=== PATIENT | male | born 1970 | race Caucasian/White ===

== ENCOUNTER 2023-12-27 22:24 | Emergency (ER) | payer OTHER ==
[~2023-12-27] VITALS: Ht 167.6 cm; Wt 57.5 kg
[~2023-12-27 22:24] MED LIST: CLIN300C17 PO; PRED5TAB PO
[2023-12-27 22:55] VITALS: BP 116/79; PULSE 96; RESP 16; TEMP 98.2; O2SAT 99
== END 2023-12-28 01:19 | disposition left against medical advice (07) ==
LOC: ER 22:24
DX: M79.604 Pain in right leg (principal); R20.0 Anesthesia of skin; Z53.21 Procedure and treatment not carried out due to patient leaving prior to being seen by health care provider

== ENCOUNTER 2024-01-18 14:19 | Emergency (ER) | payer BC, OTHER ==
[~2024-01-18] VITALS: Ht 167.6 cm; Wt 68.0 kg
[2024-01-18 15:12] LABS: BASOPHILS # (AUTO) 0.1 X10'3 (0-0.2); EOSINOPHILS # (AUTO) 0.1 X10'3 (0-0.9); EOSINOPHILS % (AUTO) 0.9 % (0-6); HEMATOCRIT 41.8 % (42.0-52.0); HEMOGLOBIN 14.5 g/dl (14.0-17.9); LYMPHOCYTES # (AUTO) 2.2 X10'3 (1.1-4.8); LYMPHOCYTES % (AUTO) 25.4 % (21-51); MEAN CORPUSCULAR HEMOGLOBIN 34.7 PG (27.0-31.0); MEAN CORPUSCULAR HGB CONC 34.7 g/dL (33.0-36.5); MEAN PLATELET VOLUME 6.2 FL (7.4-10.4); MONOCYTES # (AUTO) 0.8 X10'3 (0-0.9); MONOCYTES % (AUTO) 9.3 % (2-12); NEUTROPHILS # (AUTO) 5.6 X10'3 (1.8-7.7); NEUTROPHILS % (AUTO) 63.4 % (42-75); PLATELET COUNT 379 X10'3 (140-440); RED BLOOD COUNT 4.18 X10'6 (4.70-6.10); RED CELL DISTRIBUTION WIDTH 14.2 % (11.5-14.5); WHITE BLOOD COUNT 8.8 X10'3 (4.5-11.0)
[2024-01-18 15:23] LABS: ALANINE AMINOTRANSFERASE 49 U/L (12-78); ALBUMIN 4.6 G/DL (3.4-5.0); ALBUMIN/GLOBULIN RATIO 1.2 (1.1-1.5); ALKALINE PHOSPHATASE 64 IU/L (46-116); ANION GAP 11 (8-16); ASPARTATE AMINO TRANSFERASE 37 U/L (10-37); BILIRUBIN,TOTAL 1.5 MG/DL (0.1-1.0); BLOOD UREA NITROGEN 6 MG/DL (7-18); BUN/CREATININE RATIO 9.4 (10.0-20.0); CALCIUM 9.1 MG/DL (8.5-10.1); CHLORIDE 93 MMOL/L (99-107); CREATININE 0.64 MG/DL (0.60-1.10); GLUCOSE 99 MG/DL (70-104); POTASSIUM 3.9 MMOL/L (3.5-5.1); SODIUM 129 MMOL/L (135-145); TOTAL CARBON DIOXIDE 25.1 MMOL/L (24-32); TOTAL PROTEIN 8.4 G/DL (6.4-8.2); eCRCL 120 ML/MIN; eGFR > 90 ML/MIN
[2024-01-18] MEDS ORDERED: iohexol 350 MG/ML 50ML vial IV ONE (15:52)
[2024-01-18] MEDS ORDERED: iohexol 350MG/ML 100ml bottle IV ONE (15:52)
[2024-01-18 18:39] VITALS: BP 149/100; PULSE 111; RESP 16; TEMP 98.1; O2SAT 99
== END 2024-01-18 18:40 | disposition home or self-care (01) ==
LOC: ER 14:19
DX: I73.9 Peripheral vascular disease, unspecified (principal); F17.200 Nicotine dependence, unspecified, uncomplicated; Z88.8 Allergy status to other drugs, medicaments and biological substances; Z79.02 Long term (current) use of antithrombotics/antiplatelets
CPT/HCPCS: 36415; 75635; 80053; 85025; 93926; 99285; Q9967